=== PATIENT | female | born 1935 | race Caucasian/White ===

== ENCOUNTER 2016-09-01 05:39 | Inpatient (IN) ==
[2016-09-01] MEDS ORDERED: ceFAZolin 1,000 MG VIAL ONE (06:02)
[2016-09-01] MEDS ORDERED: SODIUM CHLORIDE 0.9% 100 ML IV ONE (06:02)
[2016-09-01] MEDS ORDERED: VANCOMYCIN 1,000 MG VIAL ONE (06:02)
[2016-09-01] MEDS: LACTATED RINGERS 1,000 ML IV SCH ×4 (06:19→17:41)
[2016-09-01] MEDS ORDERED: VANCOMYCIN INJ 1,000 MG in SODIUM CHLORIDE 0.9% 250 ML IV ONE (06:30)
[2016-09-01] MEDS ORDERED: DIAZEPAM 5 MG TABLET PO ONE (06:43)
[2016-09-01] MEDS ORDERED: FAMOTIDINE 20 MG TABLET PO ONE (06:43)
--- NOTE | 2016-09-01 06:45 | History and Physical Update ---
History and Physical Update - History and Physical H&P was reviewed, the patient examined and there: are no changes in the patients condition since last H&P was completed. - Physical Exam Mental Status: alert and oriented Heart: regular rate and rhythm Lung: clear to auscultation
[2016-09-01] MEDS ORDERED: FAMOTIDINE 20 MG TABLET ONE (06:46)
[2016-09-01] MEDS ORDERED: DIAZEPAM 5 MG TABLET ONE (06:46)
[2016-09-01] MEDS ORDERED: BACITRACIN OINT 0.9 GM PACK TOP ONE (08:03)
[2016-09-01] MEDS ORDERED: oxyCODONE IR 5 MG TABLET PO PRN (08:13)
[2016-09-01] MEDS ORDERED: diphenhydrAMINE CAP 25 MG CAPSULE PO PRN (08:13)
[2016-09-01] MEDS ORDERED: MAGNESIUM HYDROXIDE SUSP 30 ML UDCUP PO PRN (08:13)
[2016-09-01] MEDS ORDERED: ONDANSETRON 4 MG/2 ML VIAL IV PRN ×2 (08:13→08:45)
--- NOTE | 2016-09-01 08:13 | Operative Note ---
Date of procedure: 09/01/16 Procedure: DIAGNOSIS: Right knee primary osteoarthrosis PROCEDURE: Right total knee arthroplasty (cpt #90030) SURGEON: Caitlin WEB PRESS ROLL TENDER: Rowdy ANESTHESIA: General with a postoperative adductor canal block PROCEDURE and FINDINGS: After adequate was induced, the patient's knee was prepped and draped in the usual sterile fashion. The limb was exsanguinated with Esmarch. Tourniquet was inflated to 300 mmHg. A median parapatellar approach was made. Femur was cut using an intramedullary guide and a 4 in 1 cutting jig in 5 degrees of valgus. ACL and menisci were excised. Tibia was cut using intramedullary guide. Patella was cut using freehand technique. Components were trialed. Tibial fin was prepared. Components are cemented in place using Palacos cement and modern cementing techniques. Cement was removed. A 1/8 inch Hemovac drain was placed. The knee was well-balanced and full range of motion with central tracking patella. Deep layers closed with 0-0 Vicryl. Superficial layers were closed with 2-0 and 3-0 Vicryl. Skin was approximated with dai. Bacitracin and a sterile dressing was applied. Patient was transferred to recovery. A postoperative adductor canal block is anticipated. COMPONENTS: The Anne Persona system was used. 5 CR narrow femur, C natural tibia, 10 mm liner, 32 mm patella TOURNIQUET TIME: 23 minutes Surgeon / Physician: Oscar Tucker Jr. Discharge Plan - Discharge Medications No Action amLODIPine [Norvasc] 5 mg PO DAILY Hydrocodone/Acetaminophen [Hydrocodon-Acetaminophn 10-325] 1 each PO TID clonazePAM TAB [KlonoPIN] 0.5 mg PO BID Lisinopril/Hydrochlorothiazide [Lisinopril-Hctz 20-12.5 mg Tab] 20 mg PO DAILY Gabapentin Cap/Tab [Neurontin Cap/Tab] 400 mg PO TID Citalopram [CeleXA] 40 mg PO DAILY Levothyroxine Tab [Synthroid Tab] 50 mcg PO DAILY@0700 - Follow Up or Referral - Forms/Instructions
[2016-09-01] MEDS ORDERED: ROPIVACAINE 0.5% 30 ML VIAL ONE (08:26)
[2016-09-01] MEDS ORDERED: MIDAZOLAM 2 MG/2 ML VIAL ONE (08:38)
[2016-09-01] MEDS ORDERED: SEVOFLURANE 1 UNIT/15 MINUTE INH ONE (08:38)
[2016-09-01] MEDS ORDERED: fentaNYL 100 MCG/2 ML VIAL ONE (08:38)
[2016-09-01] MEDS ORDERED: ACETAMINOPHEN 1,000 MG/100 ML VIAL IV ONE ×2 (08:38→09:25)
[2016-09-01] MEDS ORDERED: TRANEXAMIC ACID 1,000 MG/10 ML VIAL IV ONE (08:40)
[2016-09-01] MEDS ORDERED: HYDROmorphone 2 MG/1 ML VIAL ONE (08:44)
[2016-09-01] MEDS: HYDROmorphone 2 MG/1 ML VIAL IV PRN ×2 (08:45→08:50)
--- NOTE | 2016-09-01 09:07 | XRay Report ---
History: Joint replacement right knee Date: 09/01/2016 Study: Right knee 2 views Comparison exam: July 03, 2013 The patient is immediately postop right knee replacement. The right knee prosthesis appears well conjugated. Surgical drains and skin dai overlie the soft tissues anteriorly. There is osteopenia. There is no radiographic evidence of complication. Impression: Postop right knee replacement PROCEDURE INTERPRETED AT [facility] DEPARTMENT OF RADIOLOGY Final Report Signed by: Dr. Chelo Read
[2016-09-01] MEDS ORDERED: ACETAMINOPHEN IV ONE (09:22)
[2016-09-01] MEDS ORDERED: KETOROLAC 30 MG/1 ML VIAL IV ONE (09:37)
[2016-09-01] MEDS: KETOROLAC 15 MG/1 ML VIAL IV SCH ×3 (10:47→20:10)
[2016-09-01] MEDS: LISINOPRIL/HCTZ 20-12.5 MG TABLET PO SCH (10:48)
[2016-09-01] MEDS: CITALOPRAM 40 MG TABLET PO SCH (11:19)
[2016-09-01] MEDS: DOCUSATE SODIUM 100 MG CAPSULE PO SCH ×2 (11:20→20:11)
[2016-09-01] MEDS: GABAPENTIN 400 MG CAPSULE PO SCH ×3 (11:20→20:12)
[2016-09-01] MEDS: clonazePAM 0.5 MG TABLET PO SCH ×2 (11:20→20:12)
[2016-09-01 12:18] LABS: Calcium 8.9 MG/DL (8.5-10.1); Osmolality,Calculated 280.5 MOS/KG (273-304); Potassium 4.5 MMOL/L (3.5-5.1)
[2016-09-01] MEDS: ACETAMINOPHEN 500 MG TABLET PO SCH ×3 (13:10→23:20)
--- NOTE | 2016-09-01 13:37 | Pulmonology Progress Note ---
Pulmonary - PN: Subj Interval history: The patient is a 80-year-old white lady that is followed by Dr. Young for hypertension and arthritis. She came in today and had a right total knee replacement. She did well today with surgery and is fairly stable postop. She is having some discomfort but has had some pain medicines. She did not have any trouble with anesthesia and she says her breathing is doing okay. She says she does feel better after pain medicines. She is a former smoker but has had no trouble with her breathing. Exam (Progress Note) - Constitutional Vitals: Period Temp Pulse Resp BP Sys/Palma Pulse Ox Last 24 Hr 97.7 F-98.6 F 78-88 12-20 93-153/62-90 96-100 General appearance: normal weight, no acute distress - Head Head exam: Present: normal inspection, normocephalic - Eye Eye exam: Present: EOMI. Absent: scleral icterus Pupils: Present: SUZI - ENT ENT exam: Present: normal exam - Neck Neck exam: Present: normal inspection. Absent: lymphadenopathy, thyromegaly - Respiratory Respiratory exam: Present: clear to auscultation bilaterally. Absent: wheezes - Cardiovascular Cardiovascular exam: Present: regular rate and rhythm. Absent: gallop, systolic murmur - GI/Abdominal GI/Abdominal exam: Present: normal bowel sounds, soft. Absent: organomegaly, tenderness - Extremities Exam Extremities exam: Present: other (The right leg is splinted). Absent: calf tenderness, edema - Neurological Exam Neurological exam: Present: alert, oriented X3, CN II-XII intact - Psychiatric Psychiatric exam: Present: normal affect, normal mood - Skin Skin exam: Present: warm, dry Results - Labs CBC & BMP: 09/01/16 11:43 Assessment and Plan (1) Osteoarthritis Status: Acute Assessment and plan: Patient apparently had significant arthritis and is limited by her knee pain. She is coming in today for surgery. Current Visit: Yes (2) Status post total right knee replacement Status: Acute Assessment and plan: The patient did well with anesthesia and is not having any trouble postop. She did well with surgery. Current Visit: Yes (3) Hypertension Status: Acute Assessment and plan: Her blood pressure has been stable and her heart rate is doing okay. She is not having any medical problems at this point. Current Visit: Yes
--- NOTE | 2016-09-01 14:39 | Anesthesia Post-Op ---
Anesthesia Post OP - Post Ansesthetic Evaluation Patient seen in post op: Yes Resp: within normal limits CV: within normal limits Mental: within normal limits Temp: within normal limits [id number]: within normal limits Nausea and Vomiting: within normal limits Pain: within normal limits
--- NOTE | 2016-09-01 15:38 | Orthopedic Progress Note ---
Orthopedics - Subjective Interval history: Comfortable. Right foot and ankle is neurovascularly intact. Dressing clean, dry and intact. Plan: Continue with postoperative protocol. Exam - Constitutional Vitals: Period Temp Pulse Resp BP Sys/Palma Pulse Ox Last 24 Hr 97.7 F-98.6 F 73-92 12-20 89-153/55-90 95-100 Results - Labs CBC & BMP: 09/01/16 11:43
[2016-09-02] MEDS: KETOROLAC 15 MG/1 ML VIAL IV SCH (01:59)
[2016-09-02] MEDS: LACTATED RINGERS 1,000 ML IV SCH (03:45)
[2016-09-02 03:52] LABS: Basophils % 0.4 % (0.0-0.8); Eosinophils # 0.3 10*3/uL (0.0-0.87); Eosinophils % 3.5 % (0.00-10.9); Hematocrit 30.8 VOL% (35.7-47.0); Hemoglobin 9.9 GM/DL (12.0-16.0); Immature Granulocytes % 0.5 %; Immature Granulocytes Absolute 0.04 #; Lymphocytes # 1.2 10*3/uL (1.4-4.0); Mean Corpuscular HGB Conc 32.1 GM/DL (32-36); Mean Corpuscular Hemoglobin 31 PG (27-34); Mean Corpuscular Volume 95.4 FL (87-102); Mean Platelet Volume 11.3 FL (9.6-12.0); Monocytes # 0.5 10*3/uL (0.11-0.8); Monocytes % 5.7 % (1.7-12.7); Neutrophils # 6.3 10*3/uL (1.4-7.4); Neutrophils % 75.9 % (38.7-73.9); Platelet Count 148 T/CUMM (130-400); Red Blood Count 3.23 MC/CUMM (3.8-5.5); Red Cell Distribution Width 12.9 % (9.3-17.3); White Blood Count 8.2 T/CUMM (4-12)
[2016-09-02 04:12] LABS: Calcium 8.6 MG/DL (8.5-10.1); Potassium 4.3 MMOL/L (3.5-5.1)
[2016-09-02] MEDS: ACETAMINOPHEN 500 MG TABLET PO SCH (05:19)
[2016-09-02] MEDS: LEVOTHYROXINE 50 MCG TABLET PO SCH (06:08)
[2016-09-02] MEDS: FONDAPARINUX 2.5 MG/0.5 ML SYRINGE SUBCUT SCH (06:08)
--- NOTE | 2016-09-02 07:27 | Orthopedic Progress Note ---
Orthopedics - Subjective Interval history: Ms. Moreira is comfortable this morning. Right lower extremity is neurovascularly unchanged. Dressing clean, dry and intact. Plan: Continue per protocol. Plan swing bed placement. Exam - Constitutional Vitals: Period Temp Pulse Resp BP Sys/Palma Pulse Ox Last 24 Hr 97.7 F-98.6 F 71-92 12-20 86-153/48-90 94-100 Results - Labs CBC & BMP: 09/02/16 02:59 09/02/16 02:59
[2016-09-02] MEDS ORDERED: ACETAMINOPHEN 325 MG TABLET PO PRN (08:14)
[2016-09-02] MEDS: clonazePAM 0.5 MG TABLET PO SCH ×2 (08:36→20:19)
[2016-09-02] MEDS: CITALOPRAM 40 MG TABLET PO SCH (08:37)
[2016-09-02] MEDS: DOCUSATE SODIUM 100 MG CAPSULE PO SCH ×2 (08:37→20:18)
[2016-09-02] MEDS: LISINOPRIL/HCTZ 20-12.5 MG TABLET PO SCH (08:37)
[2016-09-02] MEDS: GABAPENTIN 400 MG CAPSULE PO SCH ×3 (08:37→20:18)
[2016-09-02] MEDS: amLODIPine 5 MG TABLET PO SCH (08:37)
[2016-09-02] MEDS: MORPHINE 2 MG/1 ML SYRINGE IV PRN ×5 (10:02→21:35)
--- NOTE | 2016-09-02 10:52 | Pulmonology Progress Note ---
Pulmonary - PN: Subj Interval history: The patient is a 80-year-old white lady that is followed by Dr. Young for hypertension and arthritis. She came in and had a right total knee replacement. She did well today with surgery but she does not remember much about yesterday. She did say she slept a lot. She feels better today but is sore. She is going to start physical therapy soon. She is not having any trouble breathing or other problems. Exam (Progress Note) - Constitutional Vitals: Period Temp Pulse Resp BP Sys/Palma Pulse Ox Last 24 Hr 97.7 F-99.9 F 71-92 15-20 86-129/48-89 94-100 Exam: General appearance: normal weight, no acute distress, she is alert and comfortable today. - Head Head exam: Present: normal inspection, normocephalic - Eye Eye exam: Present: EOMI. Absent: scleral icterus Pupils: Present: SUZI - ENT ENT exam: Present: normal exam - Neck Neck exam: Present: normal inspection. Absent: lymphadenopathy, thyromegaly - Respiratory Respiratory exam: Present: clear to auscultation bilaterally. Absent: wheezes - Cardiovascular Cardiovascular exam: Present: regular rate and rhythm. Absent: gallop, systolic murmur - GI/Abdominal GI/Abdominal exam: Present: normal bowel sounds, soft. Absent: organomegaly, tenderness - Extremities Exam Extremities exam: Present: other (The right leg is splinted. She is not having a lot of swelling.). Absent: calf tenderness, edema - Neurological Exam Neurological exam: Present: alert, oriented X3, CN II-XII intact - Psychiatric Psychiatric exam: Present: normal affect, normal mood - Skin Skin exam: Present: warm, dry Results - Labs CBC & BMP: 09/02/16 02:59 09/02/16 02:59 Assessment and Plan (1) Osteoarthritis Status: Acute Assessment and plan: Patient apparently had significant arthritis and is limited by her knee pain. Current Visit: Yes (2) Status post total right knee replacement Status: Acute Assessment and plan: The patient did well with anesthesia and she does not remember much about yesterday. She did well with surgery and her knee is feeling better. She will start physical therapy today. Current Visit: Yes (3) Hypertension Status: Acute Assessment and plan: Her blood pressure has been stable and her heart rate is doing okay. She is not having any medical problems at this point. She feels like her breathing is doing well and she will start moving around today. Current Visit: Yes
[2016-09-02] MEDS: CELECOXIB 200 MG CAPSULE PO SCH (14:32)
[2016-09-02] MEDS: oxyCODONE IR 5 MG TABLET PO PRN (20:20)
[2016-09-03] MEDS: oxyCODONE IR 5 MG TABLET PO PRN ×2 (00:14→04:07)
[2016-09-03 02:23] LABS: Basophils % 0.2 % (0.0-0.8); Eosinophils # 0.3 10*3/uL (0.0-0.87); Eosinophils % 3.7 % (0.00-10.9); Hematocrit 30.8 VOL% (35.7-47.0); Hemoglobin 9.6 GM/DL (12.0-16.0); Immature Granulocytes % 0.6 %; Immature Granulocytes Absolute 0.06 #; Lymphocytes # 1.4 10*3/uL (1.4-4.0); Lymphocytes % 15.2 % (21.3-54.2); Mean Corpuscular HGB Conc 31.2 GM/DL (32-36); Mean Corpuscular Hemoglobin 30 PG (27-34); Monocytes # 0.7 10*3/uL (0.11-0.8); Monocytes % 7.2 % (1.7-12.7); Neutrophils # 6.8 10*3/uL (1.4-7.4); Neutrophils % 73.1 % (38.7-73.9); Platelet Count 167 T/CUMM (130-400); Red Blood Count 3.21 MC/CUMM (3.8-5.5); Red Cell Distribution Width 13.1 % (9.3-17.3); White Blood Count 9.3 T/CUMM (4-12)
[2016-09-03] MEDS: FONDAPARINUX 2.5 MG/0.5 ML SYRINGE SUBCUT SCH (05:54)
[2016-09-03] MEDS: LEVOTHYROXINE 50 MCG TABLET PO SCH (06:20)
--- NOTE | 2016-09-03 07:40 | Orthopedic Progress Note ---
Orthopedics - Subjective Interval history: Ms. Moreira has had more pain since the block wore off. Dressing clean, dry and intact. Right lower extremities neurovascularly unchanged. Plan: Will increase her Sabine to 10's every 4 hours. Plan swing bed placement. Mobilize with physical therapy. Exam - Constitutional Vitals: Period Temp Pulse Resp BP Sys/Palma Pulse Ox Last 24 Hr 97.9 F-100.6 F 75-99 15-20 109-138/54-67 91-100 Results - Labs CBC & BMP: 09/03/16 01:57 09/02/16 02:59
[2016-09-03] MEDS: GABAPENTIN 400 MG CAPSULE PO SCH ×3 (08:13→21:01)
[2016-09-03] MEDS: CITALOPRAM 40 MG TABLET PO SCH (08:13)
[2016-09-03] MEDS: amLODIPine 5 MG TABLET PO SCH (08:13)
[2016-09-03] MEDS: CELECOXIB 200 MG CAPSULE PO SCH (08:13)
[2016-09-03] MEDS: MORPHINE 2 MG/1 ML SYRINGE IV PRN ×4 (08:14→21:02)
[2016-09-03] MEDS: LISINOPRIL/HCTZ 20-12.5 MG TABLET PO SCH (08:14)
[2016-09-03] MEDS: clonazePAM 0.5 MG TABLET PO SCH ×2 (08:14→21:01)
[2016-09-03] MEDS: DOCUSATE SODIUM 100 MG CAPSULE PO SCH ×2 (08:14→21:01)
--- NOTE | 2016-09-03 09:45 | Pulmonology Progress Note ---
Pulmonary - PN: Subj Interval history: The patient is a 80-year-old white lady that is followed by Dr. Young for hypertension and arthritis. She came in and had a right total knee replacement. She did well with surgery but she does not remember much about the first day. Yesterday she did move around a little bit. She is complaining of more pain and had a bad night. She says she did not sleep very well. Today she looks okay and says her breathing is doing well. She is going to try to continue with physical therapy. Exam (Progress Note) - Constitutional Vitals: Period Temp Pulse Resp BP Sys/Palma Pulse Ox Last 24 Hr 97.9 F-100.6 F 85-99 15-20 109-138/54-67 91-97 Exam: General appearance: normal weight, no acute distress, she is alert and comfortable today. - Head Head exam: Present: normal inspection, normocephalic - Eye Eye exam: Present: EOMI. Absent: scleral icterus Pupils: Present: SUZI - ENT ENT exam: Present: normal exam - Neck Neck exam: Present: normal inspection. Absent: lymphadenopathy, thyromegaly - Respiratory Respiratory exam: Present: clear to auscultation bilaterally. Absent: wheezes - Cardiovascular Cardiovascular exam: Present: regular rate and rhythm. Absent: gallop, systolic murmur - GI/Abdominal GI/Abdominal exam: Present: normal bowel sounds, soft. Absent: organomegaly, tenderness - Extremities Exam Extremities exam: Right leg is still splinted but the swelling is better. - Neurological Exam Neurological exam: Present: alert, oriented X3, CN II-XII intact, she has no focal deficits. - Psychiatric Psychiatric exam: Present: normal affect, normal mood - Skin Skin exam: Present: warm, dry Results - Labs CBC & BMP: 09/03/16 01:57 09/02/16 02:59 Assessment and Plan (1) Osteoarthritis Status: Acute Assessment and plan: Patient apparently had significant arthritis and is limited by her knee pain. Current Visit: Yes (2) Status post total right knee replacement Status: Acute Assessment and plan: The patient did well with anesthesia and she does not remember much about the first postop day. She is having a good bit of pain and is taking some pain medicines. She will continue with physical therapy today. Current Visit: Yes (3) Hypertension Status: Acute Assessment and plan: Her blood pressure has been stable and her heart rate is doing okay. She is not having any medical problems at this point. She feels like her breathing is doing well and she will start moving around today. Current Visit: Yes
[2016-09-04] MEDS: MORPHINE 2 MG/1 ML SYRINGE IV PRN ×3 (00:04→06:01)
[2016-09-04 05:51] LABS: Basophils % 0.1 % (0.0-0.8); Eosinophils # 0.4 10*3/uL (0.0-0.87); Eosinophils % 4.6 % (0.00-10.9); Hematocrit 28.8 VOL% (35.7-47.0); Hemoglobin 9.1 GM/DL (12.0-16.0); Immature Granulocytes % 0.5 %; Immature Granulocytes Absolute 0.05 #; Lymphocytes # 1.5 10*3/uL (1.4-4.0); Lymphocytes % 16.3 % (21.3-54.2); Mean Corpuscular HGB Conc 31.6 GM/DL (32-36); Mean Corpuscular Hemoglobin 31 PG (27-34); Mean Corpuscular Volume 98.3 FL (87-102); Mean Platelet Volume 10.7 FL (9.6-12.0); Monocytes # 0.7 10*3/uL (0.11-0.8); Monocytes % 7.3 % (1.7-12.7); Neutrophils # 6.5 10*3/uL (1.4-7.4); Neutrophils % 71.2 % (38.7-73.9); Platelet Count 167 T/CUMM (130-400); Red Blood Count 2.93 MC/CUMM (3.8-5.5); Red Cell Distribution Width 13.2 % (9.3-17.3); White Blood Count 9.1 T/CUMM (4-12)
[2016-09-04] MEDS: FONDAPARINUX 2.5 MG/0.5 ML SYRINGE SUBCUT SCH (06:00)
[2016-09-04] MEDS: LEVOTHYROXINE 50 MCG TABLET PO SCH (06:00)
[2016-09-04] MEDS: CITALOPRAM 40 MG TABLET PO SCH (08:34)
[2016-09-04] MEDS: GABAPENTIN 400 MG CAPSULE PO SCH ×3 (08:34→21:08)
[2016-09-04] MEDS: CELECOXIB 200 MG CAPSULE PO SCH (08:35)
[2016-09-04] MEDS: DOCUSATE SODIUM 100 MG CAPSULE PO SCH ×2 (08:35→21:08)
[2016-09-04] MEDS: clonazePAM 0.5 MG TABLET PO SCH ×2 (08:35→21:08)
[2016-09-04] MEDS: amLODIPine 5 MG TABLET PO SCH (08:36)
[2016-09-04] MEDS: LISINOPRIL/HCTZ 20-12.5 MG TABLET PO SCH (08:36)
--- NOTE | 2016-09-04 09:09 | Discharge Summary ---
Hospital Course - Hospital Course Hospital Course: Ms. Moreira was admitted after undergoing an uncomplicated right total knee arthroplasty. She received perioperative DVT and antimicrobial prophylaxis. She received physical therapy. Dr. Santoro was consulted to manage her medical problems perioperatively. Dressing is clean, dry and intact. Right lower extremities neurovascularly unchanged. Specialty Discharge - Follow Up or Referrals Follow up with: Oscar Tucker Jr., MD [Physician] - 10/03/16 9:20 am (4 weeks) Joshua Santoro MD [Physician] - (call office with room number on arrival) Discharge Plan - Discharge Data Disposition: Disch/Xfer to Snf Condition at Discharge: Stable Discharge Diet: advance to your usual diet Hygiene: may shower Weight Bearing at Discharge: weight bear as tolerated Driving: not until seen by doctor - Discharge Medications New Fondaparinux [Arixtra] 2.5 mg SUBCUT Q24H #10 syringe HYDROcodone/ACETAMIN 10-325 [[place] 10-325] 1 tablet PO Q4H PRN tablet PRN Reason: Pain Moderate (4-7) HYDROcodone/ACETAMIN 10-325 [[place] 10-325] 2 tablet PO Q4H PRN tablet PRN Reason: Pain Moderate (4-7) Celecoxib [Celebrex] 200 mg PO DAILY capsule Continue amLODIPine [Norvasc] 5 mg PO DAILY clonazePAM TAB [KlonoPIN] 0.5 mg PO BID Lisinopril/Hydrochlorothiazide [Lisinopril-Hctz 20-12.5 mg Tab] 1 tablet PO DAILY Gabapentin Cap/Tab [Neurontin Cap/Tab] 400 mg PO TID Citalopram [CeleXA] 40 mg PO DAILY Levothyroxine Tab [Synthroid Tab] 50 mcg PO DAILY@0700 Discontinued Hydrocodone/Acetaminophen [Hydrocodon-Acetaminophn 10-325] 1 each PO TID - Follow Up or Referral Follow Up: Oscar Tucker Jr., MD [Physician] - 10/03/16 9:20 am (4 weeks) Joshua Santoro MD [Physician] - (call office with room number on arrival) - Forms/Instructions Instructions: Total Knee Replacement (DC) Additional Discharge Instructions: Daily dry dressing changes. Weightbearing as tolerated. Arrange walker and bedside commode for home use. Wear KADEN hose for 1 month. Discontinue dai and Steri-Strip wound on September 13, 2016. Follow -up appointment in 4 weeks. Prescription for [place] 10 with 30 tablets was written. Exam - Constitutional Vitals: Period Temp Pulse Resp BP Sys/Palma Pulse Ox Last 24 Hr 97.2 F-98.5 F 83-94 16-20 96-120/48-68 92-97 Discharge Results Labs on day of discharge: Labs from last 24 hours 09/04/16 05:31 WBC 9.1 RBC 2.93 L Hgb 9.1 L Hct 28.8 L MCV 98.3 MCH 31 MCHC 31.6 L RDW 13.2 Plt Count 167 MPV 10.7 Neut % (Auto) 71.2 Lymph % (Auto) 16.3 L [place] % (Auto) 7.3 Eos % (Auto) 4.6 Baso % (Auto) 0.1 Neut # (Auto) 6.5 Lymph # (Auto) 1.5 [place] # (Auto) 0.7 Eos # (Auto) 0.4 Baso # (Auto) 0.0 Immature Gran % 0.5 Nucleated RBC % 0.0 Immature Gran # 0.05 Nucleated RBCs # 0.00 DS: Provider Date of admission: 09/01/16 05:39 Primary care physician: Taiwo Young MD Attending physician on admission: Oscar Tucker Jr., Consults: 09/01/16 08:14 Consult to Case Mgmt/Social Srvs [CONS] Routine Reason for Case Mgmt/Social Srvs: Rehab Home Health Equipment Consult Comment: Bedside Commode, CPM, Walker Consult to Occupational Therapy [CONS] Routine Reason for Occupational Therapy: Evaluate and Treat Consult Comment: ADL's Consult to Physical Therapy [CONS] Routine Reason for Physical Therapy: Evaluate and Treat Gait Training Start Therapy: Today 09/01/16 10:13 Consult to Physician [CONS] Routine Comment: Consulting Provider: Joshua Santoro Consulting Provider Notified: Yes When should Consulting Provider be notified: Now Person Notified: kimo marin Date Notified: 09/01/16 Time Notified: 10:14 09/01/16 10:34 Consult to Pastoral Services [CONS] Routine Comment: Pastoral Screen: Request Private Security Guard Visit Pastoral Screen Source of Request: Family Discharging clinician: Oscar Tucker Jr., Expected date of discharge: 09/05/16
--- NOTE | 2016-09-04 12:18 | Pulmonology Progress Note ---
Pulmonary - PN: Subj Interval history: The patient is a 80-year-old white lady that is followed by Dr. Young for hypertension and arthritis. She came in and had a right total knee replacement. She did well with surgery but she does not remember much about the first day. She is doing a little better each day but still not sleeping that well. She still requires pain medicines. She says she is having a bowel movement now. Her breathing is been doing okay. She is sitting up and do a little more physical therapy. She will likely need a swing bed. Exam (Progress Note) - Constitutional Vitals: Period Temp Pulse Resp BP Sys/Palma Pulse Ox Last 24 Hr 97.2 F-98.8 F 84-94 16-20 95-108/48-79 92-97 Exam: General appearance: normal weight, no acute distress, she is alert and comfortable today. She is sitting up and in no distress. - Head Head exam: Present: normal inspection, normocephalic - Eye Eye exam: Present: EOMI. Absent: scleral icterus Pupils: Present: SUZI - ENT ENT exam: Present: normal exam - Neck Neck exam: Present: normal inspection. Absent: lymphadenopathy, thyromegaly - Respiratory Respiratory exam: Present: Her lungs have good breath sounds bilaterally and sound relatively clear. - Cardiovascular Cardiovascular exam: Present: regular rate and rhythm. Absent: gallop, systolic murmur - GI/Abdominal GI/Abdominal exam: Present: normal bowel sounds, soft. Absent: organomegaly, tenderness - Extremities Exam Extremities exam: Right leg is still splinted but the swelling is better. She is moving her leg a little better. - Neurological Exam Neurological exam: Present: alert, oriented X3, CN II-XII intact, she has no focal deficits. - Psychiatric Psychiatric exam: Present: normal affect, normal mood - Skin Skin exam: Present: warm, dry Results - Labs CBC & BMP: 09/04/16 05:31 09/02/16 02:59 Assessment and Plan (1) Osteoarthritis Status: Acute Assessment and plan: Patient apparently had significant arthritis and is limited by her knee pain. Current Visit: Yes (2) Status post total right knee replacement Status: Acute Assessment and plan: The patient continues to do fairly well postop but has had a lot of pain. She is doing some physical therapy. She will likely go to a swing bed. Current Visit: Yes (3) Hypertension Status: Acute Assessment and plan: Her blood pressure has been stable and her heart rate is doing okay. She is not having any medical problems at this point. She feels like her breathing is doing well and she will start moving around today. Current Visit: Yes Specialty Discharge - Follow Up or Referrals Follow up with: Oscar Tucker Jr., MD [Physician] - 10/03/16 9:20 am (4 weeks)
--- NOTE | 2016-09-04 12:19 | Pathology Report from [facility] ---
[facility] ACCESSION # : [id number] PATIENT NAME : Kb Moreira ORDERING DR : YULIANA MOSCOSO MD CLINICAL HX: RT knee osteoarthritis POST-OP DX: Same SPECIMEN INFO: RT knee bone & tissue GROSS DESCRIPTION: Received in formalin labeled KB MOREIRA is an aggregate of bone, soft tissue and cartilage measuring 11.5 x 5.0 cm. The articular surfaces are focally degenerative with areas of subchondral eburnation seen. Crutch Maker tissue is submitted in one cassette. DIAGNOSIS FOR KB MOREIRA: RIGHT KNEE BONE & TISSUE, REPLACEMENT: Osteoarthritis. COLLECTED DATE: 09/01/2016 [facility] REPORT DATE: 09/04/2016 ELECTRONICALLY SIGNED BY: Kellee Abebe M.D. 09/04/2016 - 10:48:27 [facility]ALTaly[facility]
[2016-09-04] MEDS: oxyCODONE IR 5 MG TABLET PO PRN (17:08)
[2016-09-05] MEDS: oxyCODONE IR 5 MG TABLET PO PRN ×2 (03:45→07:08)
[2016-09-05] MEDS: FONDAPARINUX 2.5 MG/0.5 ML SYRINGE SUBCUT SCH (07:05)
[2016-09-05] MEDS: LEVOTHYROXINE 50 MCG TABLET PO SCH (07:05)
[2016-09-05 07:11] LABS: Calcium 9.3 MG/DL (8.5-10.1); Osmolality,Calculated 280.5 MOS/KG (273-304); Potassium 4.8 MMOL/L (3.5-5.1)
--- NOTE | 2016-09-05 07:20 | Orthopedic Progress Note ---
Orthopedics - Subjective Interval history: Still waiting on swing bed placement. Ms. Moreira is feeling better and is progressing with physical therapy. Dressing clean, dry and intact. Right lower extremities neurovascular change. Plan: Continue with physical therapy. Await swing bed placement. Exam - Constitutional Vitals: Period Temp Pulse Resp BP Sys/Palma Pulse Ox Last 24 Hr 97.0 F-98.8 F 82-104 16-20 93-107/53-79 90-96 Results - Labs CBC & BMP: 09/04/16 05:31 09/05/16 06:23 Specialty Discharge - Follow Up or Referrals Follow up with: Oscar Tucker Jr., MD [Physician] - 10/03/16 9:20 am (4 weeks)
[2016-09-05] MEDS: DOCUSATE SODIUM 100 MG CAPSULE PO SCH (09:59)
[2016-09-05] MEDS: CELECOXIB 200 MG CAPSULE PO SCH (09:59)
[2016-09-05] MEDS: CITALOPRAM 40 MG TABLET PO SCH (09:59)
[2016-09-05] MEDS: LISINOPRIL/HCTZ 20-12.5 MG TABLET PO SCH (10:00)
[2016-09-05] MEDS: clonazePAM 0.5 MG TABLET PO SCH (10:00)
[2016-09-05] MEDS: GABAPENTIN 400 MG CAPSULE PO SCH (10:00)
[2016-09-05] MEDS: amLODIPine 5 MG TABLET PO SCH (10:00)
--- NOTE | 2016-09-05 10:09 | Pulmonology Progress Note ---
Pulmonary - PN: Subj Interval history: The patient is a 80-year-old white lady that is followed by Dr. Young for hypertension and arthritis. She came in and had a right total knee replacement. She has been slow moving around but is doing better now. She says her leg is feeling better and she is walking some. The right knee pain is much improved. She is not having any shortness of breath or other problems. She will probably go to a swing bed. Exam (Progress Note) - Constitutional Vitals: Period Temp Pulse Resp BP Sys/Palma Pulse Ox Last 24 Hr 97.0 F-99.3 F 82-104 16-20 93-143/53-79 90-100 Exam: General appearance: normal weight, no acute distress, she is alert and comfortable today. She is sitting up and in no distress. She looks like she feels better today. - Head Head exam: Present: normal inspection, normocephalic - Eye Eye exam: Present: EOMI. Absent: scleral icterus Pupils: Present: SUZI - ENT ENT exam: Present: normal exam - Neck Neck exam: Present: normal inspection. Absent: lymphadenopathy, thyromegaly - Respiratory Respiratory exam: Present: Her lungs have good breath sounds bilaterally and sound relatively clear. - Cardiovascular Cardiovascular exam: Present: regular rate and rhythm. Absent: gallop, systolic murmur - GI/Abdominal GI/Abdominal exam: Present: normal bowel sounds, soft. Absent: organomegaly, tenderness - Extremities Exam Extremities exam: Right leg is still splinted but the swelling is better. She is moving her leg a little better. Her wound looks good. - Neurological Exam Neurological exam: Present: alert, oriented X3, CN II-XII intact, she has no focal deficits. - Psychiatric Psychiatric exam: Present: normal affect, normal mood - Skin Skin exam: Present: warm, dry Results - Labs CBC & BMP: 09/04/16 05:31 09/05/16 06:23 Assessment and Plan (1) Osteoarthritis Status: Acute Assessment and plan: Patient apparently had significant arthritis and is limited by her knee pain. She is doing fairly well after surgery. Current Visit: Yes (2) Status post total right knee replacement Status: Acute Assessment and plan: The patient continues to do fairly well postop and she is moving around better and ambulating a little. Her knee pain is better. Overall she is improving. She will go to a swing bed today. Current Visit: Yes (3) Hypertension Status: Acute Assessment and plan: Her blood pressure has been stable and her heart rate is doing okay. She is not having any medical problems at this point. She feels like her breathing is doing well and she is doing more activity now. Overall she is quite stable. Current Visit: Yes Specialty Discharge - Follow Up or Referrals Follow up with: Oscar Tucker Jr., MD [Physician] - 10/03/16 9:20 am (4 weeks) Joshua Santoro MD [Physician] - (call office with room number on arrival)
[2016-09-05 12:32] VITALS: BP 108/43
== END 2016-09-05 12:45 | disposition swing bed (61) | DRG 470 ==
LOC: N.SDSINP 05:39 → N.3E 10:02
PROVIDERS: ADMIT Orthopaedic Surgery; ATTEND Orthopaedic Surgery

== ENCOUNTER 2017-08-08 09:31 | Inpatient (IN) ==
[2017-08-08] MEDS ORDERED: ONDANSETRON 4 MG/2 ML VIAL IV STA ×2 (09:53→11:42)
[2017-08-08] MEDS ORDERED: SODIUM CHLORIDE 0.9% 1,000 ML IV STA (09:53)
[2017-08-08] MEDS ORDERED: PANTOPRAZOLE 40 MG VIAL IV STA (09:56)
[2017-08-08] MEDS ORDERED: METOCLOPRAMIDE 10 MG/2 ML VIAL IV STA ×2 (09:56→11:42)
[2017-08-08 10:51] LABS: Basophils # 0.1 10*3/uL (0.0-0.2); Basophils % 0.3 % (0.0-0.8); Eosinophils % 0.1 % (0.00-10.9); Hematocrit 39.2 VOL% (35.7-47.0); Hemoglobin 12.6 GM/DL (12.0-16.0); Immature Granulocytes % 1.9 %; Mean Corpuscular HGB Conc 32.1 GM/DL (32-36); Mean Corpuscular Hemoglobin 29 PG (27-34); Mean Corpuscular Volume 90.1 FL (87-102); Mean Platelet Volume 9.8 FL (9.6-12.0); Monocytes # 1.2 10*3/uL (0.11-0.8); Monocytes % 4.6 % (1.7-12.7); Neutrophils # 23.4 10*3/uL (1.4-7.4); Neutrophils % 89.1 % (38.7-73.9); Platelet Count 439 T/CUMM (130-400); Red Blood Count 4.35 MC/CUMM (3.8-5.5); Red Cell Distribution Width 14.1 % (9.3-17.3); White Blood Count 26.3 T/CUMM (4-12)
[2017-08-08] MEDS ORDERED: metroNIDAZOLE INJ 500 MG in PREMIX 1 EACH IV STA (11:07)
[2017-08-08] MEDS ORDERED: cefTRIAXone 2,000 MG in SODIUM CHLORIDE 0.9% 100 ML IV ONE (11:07)
[2017-08-08 11:18] LABS: Giant Platelets Few; Hypochromasia 1+; Lymphocytes 3 % (20-55); Platelet Estimate Adequate; Segmented Neutrophils 92 % (50-85); Total Cells Counted 100
[2017-08-08 11:19] LABS: Alanine Aminotransferase 17 U/L (13-56); Alkaline Phosphatase 197 U/L (45-117); Amylase 54 U/L (25-115); Aspartate Amino Transferase 10 U/L (0-37); Blood Urea Nitrogen 14 MG/DL (7-18); Calcium 9.2 MG/DL (8.5-10.1); Glucose 117 MG/DL (74-106); Osmolality,Calculated 271.1 MOS/KG (273-304); Potassium 4.1 MMOL/L (3.5-5.1); Sodium 135 MMOL/L (136-145); Total Protein 7.8 G/DL (6.4-8.3); Troponin I Only < 0.015 NG/ML (0.00-0.045)
[2017-08-08] MEDS ORDERED: cefTRIAXone 1,000 MG VIAL ONE (11:33)
[2017-08-08 12:02] LABS: Lactic Acid 0.7 MMOL/L (0.4-2.0)
[2017-08-08 14:49] LABS: Apearance,Urine CLEAR (Clear); Bilirubin,Urine Negative (Negative); Blood, Urine Negative (Negative); Glucose,Urine (UA) Negative (Negative); Hyaline Casts,Urine 3 /LPF (0-3); Ketones,Urine 20 mg/dL (Negative); Nitrite,Urine Negative (Negative); Protein,Urine Negative; RBC,Urine 1 /HPF (0-4); Squamous Epithelial Cell,Urine Occasional /HPF (0-10); Urine Color Yellow (Yellow); Urine Specific Gravity 1.009 (1.001-1.035); Urine Urobilinogen < 2.0 EU/DL (0.2-1.0); WBC,Urine 2 /HPF (0-6)
[2017-08-08] MEDS ORDERED: MORPHINE 4 MG/1 ML VIAL IV PRN (17:38)
[2017-08-08] MEDS ORDERED: ONDANSETRON 4 MG/2 ML VIAL IV PRN (17:38)
[2017-08-08] MEDS ORDERED: ACETAMINOPHEN 325 MG TABLET PO PRN (17:38)
[2017-08-08] MEDS: LACTATED RINGERS 1,000 ML IV SCH (18:09)
[2017-08-08] MEDS: GABAPENTIN 400 MG CAPSULE PO SCH ×2 (18:10→21:10)
[2017-08-08] MEDS: PIPERACILLIN/TAZOBACTAM 3,375 MG in SODIUM CHLORIDE 0.9% 100 ML IV SCH (18:12)
[2017-08-08] MEDS: clonazePAM 0.5 MG TABLET PO SCH (21:10)
[2017-08-08] MEDS: CITALOPRAM 40 MG TABLET PO SCH (21:10)
[2017-08-09] MEDS: PIPERACILLIN/TAZOBACTAM 3,375 MG in SODIUM CHLORIDE 0.9% 100 ML IV SCH ×3 (01:01→18:32)
[2017-08-09] MEDS: LACTATED RINGERS 1,000 ML IV SCH ×2 (01:02→10:45)
[2017-08-09] MEDS: LEVOTHYROXINE 50 MCG TABLET PO SCH (06:11)
[2017-08-09 06:54] LABS: Basophils % 0.2 % (0.0-0.8); Eosinophils # 0.6 10*3/uL (0.0-0.87); Eosinophils % 3.2 % (0.00-10.9); Hematocrit 30.7 VOL% (35.7-47.0); Immature Granulocytes % 1.1 %; Immature Granulocytes Absolute 0.19 #; Lymphocytes % 5.8 % (21.3-54.2); Mean Corpuscular HGB Conc 32.2 GM/DL (32-36); Mean Corpuscular Hemoglobin 29 PG (27-34); Mean Corpuscular Volume 89.5 FL (87-102); Mean Platelet Volume 9.9 FL (9.6-12.0); Monocytes # 0.9 10*3/uL (0.11-0.8); Monocytes % 5.1 % (1.7-12.7); Neutrophils # 14.6 10*3/uL (1.4-7.4); Neutrophils % 84.6 % (38.7-73.9); Platelet Count 368 T/CUMM (130-400); Red Cell Distribution Width 14.2 % (9.3-17.3)
[2017-08-09 07:11] LABS: Hemoglobin 9.9 GM/DL (12.0-16.0); Red Blood Count 3.43 MC/CUMM (3.8-5.5); White Blood Count 17.3 T/CUMM (4-12)
[2017-08-09 07:30] LABS: Alanine Aminotransferase < 9 U/L (13-56); Alkaline Phosphatase 144 U/L (45-117); Aspartate Amino Transferase 5 U/L (0-37); Blood Urea Nitrogen 10 MG/DL (7-18); Calcium 8.8 MG/DL (8.5-10.1); Glucose 87 MG/DL (74-106); Osmolality,Calculated 280.1 MOS/KG (273-304); Potassium 3.8 MMOL/L (3.5-5.1); Sodium 142 MMOL/L (136-145); Total Protein 5.8 G/DL (6.4-8.3)
[2017-08-09] MEDS: GABAPENTIN 400 MG CAPSULE PO SCH ×3 (09:51→21:55)
[2017-08-09] MEDS: PANTOPRAZOLE 40 MG TABLET PO SCH (09:51)
[2017-08-09] MEDS: clonazePAM 0.5 MG TABLET PO SCH ×2 (09:51→21:55)
[2017-08-09] MEDS: ENOXAPARIN 40 MG/0.4 ML SYRINGE SUBCUT SCH (09:51)
[2017-08-09] MEDS: CITALOPRAM 40 MG TABLET PO SCH (21:55)
[2017-08-10] MEDS: PIPERACILLIN/TAZOBACTAM 3,375 MG in SODIUM CHLORIDE 0.9% 100 ML IV SCH ×2 (02:57→10:05)
[2017-08-10] MEDS: LEVOTHYROXINE 50 MCG TABLET PO SCH (06:03)
[2017-08-10 06:46] LABS: Basophils # 0.1 10*3/uL (0.0-0.2); Basophils % 0.5 % (0.0-0.8); Eosinophils # 0.8 10*3/uL (0.0-0.87); Eosinophils % 7.8 % (0.00-10.9); Hematocrit 30.3 VOL% (35.7-47.0); Hemoglobin 9.6 GM/DL (12.0-16.0); Immature Granulocytes % 0.8 %; Immature Granulocytes Absolute 0.08 #; Lymphocytes # 1.4 10*3/uL (1.4-4.0); Lymphocytes % 14.1 % (21.3-54.2); Mean Corpuscular HGB Conc 31.7 GM/DL (32-36); Mean Corpuscular Hemoglobin 29 PG (27-34); Mean Corpuscular Volume 91.3 FL (87-102); Monocytes # 0.6 10*3/uL (0.11-0.8); Monocytes % 5.8 % (1.7-12.7); Neutrophils # 7.1 10*3/uL (1.4-7.4); Platelet Count 382 T/CUMM (130-400); Red Blood Count 3.32 MC/CUMM (3.8-5.5); Red Cell Distribution Width 14.1 % (9.3-17.3)
[2017-08-10] MEDS: GABAPENTIN 400 MG CAPSULE PO SCH ×2 (09:52→15:00)
[2017-08-10] MEDS: ENOXAPARIN 40 MG/0.4 ML SYRINGE SUBCUT SCH (09:52)
[2017-08-10] MEDS: PANTOPRAZOLE 40 MG TABLET PO SCH (09:52)
[2017-08-10] MEDS: clonazePAM 0.5 MG TABLET PO SCH (09:52)
[2017-08-10 11:23] VITALS: BP 106/59
== END 2017-08-10 14:20 | disposition home health service (06) | DRG 866 ==
LOC: N.ED 09:31 → N.EDINP 14:10 → N.3E 17:37
PROVIDERS: ADMIT Surgery; ATTEND Surgery

== ENCOUNTER 2019-10-07 05:42 | Inpatient (IN) ==
[2019-10-07] MEDS ORDERED: VANCOMYCIN 1,000 MG VIAL ONE (06:09)
[2019-10-07] MEDS ORDERED: ceFAZolin 1,000 MG VIAL ONE (06:09)
[2019-10-07] MEDS ORDERED: ceFAZolin 1,000 MG in SYRINGE 1 EACH IV ONE (06:30)
[2019-10-07] MEDS ORDERED: VANCOMYCIN INJ 1,000 MG in SODIUM CHLORIDE 0.9% 250 ML IV ONE (06:30)
[2019-10-07] MEDS ORDERED: LACTATED RINGERS 1,000 ML IV SCH ×2 (07:00→08:30)
[2019-10-07] MEDS ORDERED: BACITRACIN OINT 0.9 GM PACK TOP ONE (07:56)
[2019-10-07] MEDS ORDERED: MORPHINE 4 MG/1 ML VIAL IV PRN ×2 (08:10)
[2019-10-07] MEDS ORDERED: ONDANSETRON 4 MG/2 ML VIAL IV PRN ×2 (08:10→08:42)
[2019-10-07] MEDS ORDERED: MAGNESIUM HYDROXIDE SUSP 30 ML UDCUP PO PRN (08:10)
[2019-10-07] MEDS ORDERED: diphenhydrAMINE CAP 25 MG CAPSULE PO PRN (08:10)
[2019-10-07] MEDS ORDERED: propofoL 200 MG/20 ML VIAL IV ONE (08:41)
[2019-10-07] MEDS ORDERED: LIDOCAINE 2% 5 ML VIAL ONE (08:41)
[2019-10-07] MEDS ORDERED: TRANEXAMIC ACID 1,000 MG/10 ML VIAL ONE (08:42)
[2019-10-07] MEDS ORDERED: fentaNYL 100 MCG/2 ML VIAL ONE (08:42)
[2019-10-07] MEDS ORDERED: ACETAMINOPHEN 1,000 MG/100 ML VIAL IV ONE (08:42)
[2019-10-07] MEDS ORDERED: SEVOFLURANE 1 UNIT/15 MINUTE INH ONE (08:42)
[2019-10-07] MEDS ORDERED: PHENYLEPHRINE 1 MG/10 ML SYRINGE IV ONE (08:43)
[2019-10-07] MEDS: HYDROmorphone 2 MG/1 ML VIAL IV PRN ×2 (08:50→09:30)
[2019-10-07] MEDS ORDERED: NALOXONE 0.4 MG/ML VIAL ONE (10:20)
[2019-10-07] MEDS ORDERED: NALOXONE 0.4 MG/ML VIAL IV ONE (10:26)
[2019-10-07] MEDS: KETOROLAC 15 MG/1 ML VIAL IV SCH ×3 (11:31→21:49)
[2019-10-07] MEDS ORDERED: MEPERIDINE 25 MG/1 ML VIAL ONE (11:56)
[2019-10-07] MEDS ORDERED: ROPIVACAINE 0.5% 30 ML VIAL ONE (12:03)
[2019-10-07] MEDS ORDERED: DEXMEDETOMIDINE 200 MCG/2 ML VIAL ONE (12:04)
[2019-10-07] MEDS ORDERED: FUROSEMIDE 20 MG/2 ML VIAL ONE (13:43)
[2019-10-07] MEDS ORDERED: ALBUTEROL/IPRATROPIUM 3 ML NEB RESP TX ONE ×2 (13:43→13:48)
[2019-10-07] MEDS ORDERED: FUROSEMIDE 20 MG/2 ML VIAL IV ONE (13:47)
[2019-10-07] MEDS: GABAPENTIN 400 MG CAPSULE PO SCH ×3 (14:20→21:53)
[2019-10-07] MEDS: ceFAZolin 1,000 MG in SYRINGE 1 EACH IV SCH ×2 (14:21→21:53)
[2019-10-07 16:34] LABS: Basophils % 0.2 % (0.0-0.8); Hematocrit 38.2 VOL% (35.7-47.0); Hemoglobin 11.6 GM/DL (12.0-16.0); Immature Granulocytes % 0.9 %; Immature Granulocytes Absolute 0.14 #; Lymphocytes # 0.9 10*3/uL (1.4-4.0); Lymphocytes % 5.8 % (21.3-54.2); Mean Corpuscular HGB Conc 30.4 GM/DL (32-36); Mean Corpuscular Volume 99.2 FL (87-102); Mean Platelet Volume 10.8 FL (9.6-12.0); Monocytes % 2.9 % (1.7-12.7); Neutrophils % 90.2 % (38.7-73.9); Platelet Count 189 T/CUMM (130-400); Red Blood Count 3.85 MC/CUMM (3.8-5.5); Red Cell Distribution Width 14.3 % (9.3-17.3); White Blood Count 15.7 T/CUMM (4-12)
[2019-10-07 16:52] LABS: Calcium 8.2 MG/DL (8.5-10.1); Osmolality,Calculated 286.8 MOS/KG (273-304)
[2019-10-07] MEDS ORDERED: CALCIUM GLUCONATE 1,000 MG in SODIUM CHLORIDE 0.9% 100 ML IV ONE ×2 (17:13→21:00)
[2019-10-07] MEDS ORDERED: SODIUM CHLORIDE 0.9% 500 ML IV ONE (17:13)
[2019-10-07] MEDS ORDERED: SODIUM POLYSTYRENE SULFATE 15 GM/60 ML BOTTLE PO STA (17:13)
[2019-10-07] MEDS: clonazePAM 0.5 MG TABLET PO SCH (21:52)
[2019-10-07] MEDS: CITALOPRAM 40 MG TABLET PO SCH (21:52)
[2019-10-07] MEDS: DOCUSATE SODIUM 100 MG CAPSULE PO SCH (21:53)
[2019-10-07] MEDS: SIMVASTATIN 20 MG TABLET PO SCH (21:53)
[2019-10-07] MEDS: LISINOPRIL/HCTZ 20-12.5 MG TABLET PO SCH (21:54)
[2019-10-08] MEDS: KETOROLAC 15 MG/1 ML VIAL IV SCH (02:04)
[2019-10-08] MEDS: ACETAMINOPHEN 325 MG TABLET PO PRN ×2 (05:10→15:50)
[2019-10-08] MEDS: LEVOTHYROXINE 50 MCG TABLET PO SCH (06:35)
[2019-10-08] MEDS: FONDAPARINUX 2.5 MG/0.5 ML SYRINGE SUBCUT SCH (06:36)
[2019-10-08 07:01] LABS: Basophils % 0.2 % (0.0-0.8); Eosinophils % 0.1 % (0.00-10.9); Hematocrit 30.5 VOL% (35.7-47.0); Immature Granulocytes % 0.7 %; Immature Granulocytes Absolute 0.09 #; Lymphocytes # 1.4 10*3/uL (1.4-4.0); Lymphocytes % 11.1 % (21.3-54.2); Mean Corpuscular HGB Conc 31.1 GM/DL (32-36); Mean Corpuscular Volume 95.6 FL (87-102); Mean Platelet Volume 10.9 FL (9.6-12.0); Monocytes % 6.4 % (1.7-12.7); Neutrophils % 81.5 % (38.7-73.9); Red Blood Count 3.19 MC/CUMM (3.8-5.5); Red Cell Distribution Width 14.2 % (9.3-17.3); White Blood Count 12.6 T/CUMM (4-12)
[2019-10-08 07:03] LABS: Hemoglobin 9.5 GM/DL (12.0-16.0); Platelet Count 147 T/CUMM (130-400)
[2019-10-08 07:05] LABS: Calcium 8.3 MG/DL (8.5-10.1); Osmolality,Calculated 280.5 MOS/KG (273-304)
[2019-10-08] MEDS: DOCUSATE SODIUM 100 MG CAPSULE PO SCH ×2 (09:52→21:43)
[2019-10-08] MEDS: clonazePAM 0.5 MG TABLET PO SCH ×2 (09:52→21:43)
[2019-10-08] MEDS: GABAPENTIN 400 MG CAPSULE PO SCH ×3 (09:53→21:43)
[2019-10-08] MEDS: PANTOPRAZOLE 40 MG TABLET PO SCH (09:54)
[2019-10-08] MEDS: SIMVASTATIN 20 MG TABLET PO SCH (21:43)
[2019-10-08] MEDS: LISINOPRIL/HCTZ 20-12.5 MG TABLET PO SCH (21:43)
[2019-10-08] MEDS: CITALOPRAM 40 MG TABLET PO SCH (21:43)
[2019-10-09] MEDS: FONDAPARINUX 2.5 MG/0.5 ML SYRINGE SUBCUT SCH (05:55)
[2019-10-09] MEDS: LEVOTHYROXINE 50 MCG TABLET PO SCH (05:55)
[2019-10-09 06:24] LABS: Basophils % 0.2 % (0.0-0.8); Eosinophils # 0.3 10*3/uL (0.0-0.87); Eosinophils % 2.8 % (0.00-10.9); Hematocrit 32.1 VOL% (35.7-47.0); Hemoglobin 10.1 GM/DL (12.0-16.0); Immature Granulocytes % 0.6 %; Immature Granulocytes Absolute 0.06 #; Lymphocytes # 1.5 10*3/uL (1.4-4.0); Lymphocytes % 14.7 % (21.3-54.2); Mean Corpuscular HGB Conc 31.5 GM/DL (32-36); Mean Corpuscular Volume 96.1 FL (87-102); Mean Platelet Volume 11.5 FL (9.6-12.0); Monocytes % 7.3 % (1.7-12.7); Neutrophils % 74.4 % (38.7-73.9); Platelet Count 148 T/CUMM (130-400); Red Blood Count 3.34 MC/CUMM (3.8-5.5); Red Cell Distribution Width 14.2 % (9.3-17.3); White Blood Count 10.1 T/CUMM (4-12)
[2019-10-09] MEDS: GABAPENTIN 400 MG CAPSULE PO SCH ×3 (09:31→21:17)
[2019-10-09] MEDS: PANTOPRAZOLE 40 MG TABLET PO SCH (09:31)
[2019-10-09] MEDS: clonazePAM 0.5 MG TABLET PO SCH ×2 (09:31→21:18)
[2019-10-09] MEDS: DOCUSATE SODIUM 100 MG CAPSULE PO SCH ×2 (09:31→21:18)
[2019-10-09] MEDS: CITALOPRAM 40 MG TABLET PO SCH (21:17)
[2019-10-09] MEDS: LISINOPRIL/HCTZ 20-12.5 MG TABLET PO SCH (21:18)
[2019-10-09] MEDS: SIMVASTATIN 20 MG TABLET PO SCH (21:18)
[2019-10-10 06:02] LABS: Basophils % 0.3 % (0.0-0.8); Eosinophils # 0.3 10*3/uL (0.0-0.87); Eosinophils % 2.9 % (0.00-10.9); Hematocrit 31.8 VOL% (35.7-47.0); Immature Granulocytes % 0.6 %; Immature Granulocytes Absolute 0.07 #; Lymphocytes # 1.3 10*3/uL (1.4-4.0); Lymphocytes % 11.5 % (21.3-54.2); Mean Corpuscular HGB Conc 31.4 GM/DL (32-36); Mean Corpuscular Volume 94.6 FL (87-102); Mean Platelet Volume 11.6 FL (9.6-12.0); Monocytes % 8.4 % (1.7-12.7); Neutrophils % 76.3 % (38.7-73.9); Platelet Count 165 T/CUMM (130-400); Red Blood Count 3.36 MC/CUMM (3.8-5.5); Red Cell Distribution Width 14.1 % (9.3-17.3); White Blood Count 11.1 T/CUMM (4-12)
[2019-10-10] MEDS: LEVOTHYROXINE 50 MCG TABLET PO SCH (06:20)
[2019-10-10] MEDS: FONDAPARINUX 2.5 MG/0.5 ML SYRINGE SUBCUT SCH (06:21)
[2019-10-10 08:10] VITALS: BP 122/70
[2019-10-10] MEDS: clonazePAM 0.5 MG TABLET PO SCH (09:40)
[2019-10-10] MEDS: GABAPENTIN 400 MG CAPSULE PO SCH (09:40)
[2019-10-10] MEDS: DOCUSATE SODIUM 100 MG CAPSULE PO SCH (09:40)
[2019-10-10] MEDS: PANTOPRAZOLE 40 MG TABLET PO SCH (09:40)
== END 2019-10-10 12:35 | disposition swing bed (61) | DRG 470 ==
LOC: N.OR 05:42 → N.SDSINP 05:43 → N.3E 14:40
PROVIDERS: ADMIT Orthopaedic Surgery; ATTEND Orthopaedic Surgery

== ENCOUNTER 2022-03-01 23:59 | Observation (INO) ==
[2022-03-02] MEDS ORDERED: SODIUM CHLORIDE 0.9% 500 ML IV STA (00:27)
[2022-03-02] MEDS ORDERED: ONDANSETRON 4 MG/2 ML VIAL IV STA (00:27)
[2022-03-02 01:42] LABS: Basophils % 0.5 % (0.0-0.8); Eosinophils # 0.1 10*3/uL (0.0-0.87); Hematocrit 41.5 VOL% (35.7-47.0); Hemoglobin 13.2 GM/DL (12.0-16.0); Immature Granulocytes % 0.3 %; Immature Granulocytes Absolute 0.02 #; Lymphocytes # 0.7 10*3/uL (1.4-4.0); Lymphocytes % 11.6 % (21.3-54.2); Mean Corpuscular HGB Conc 31.8 GM/DL (32-36); Mean Corpuscular Volume 94.5 FL (87-102); Mean Platelet Volume 11.2 FL (9.6-12.0); Monocytes # 0.5 10*3/uL (0.11-0.8); Monocytes % 8.9 % (1.7-12.7); Neutrophils % 77.7 % (38.7-73.9); Platelet Count 154 T/CUMM (130-400); Red Blood Count 4.39 MC/CUMM (3.8-5.5); Red Cell Distribution Width 13.3 % (9.3-17.3); White Blood Count 6.1 T/CUMM (4-12)
[2022-03-02 01:50] LABS: INR 0.9; PT Patient Result 10.4 SECS (10.1-12.1); Partial Thromboplastin Time 29.9 SECS (23.7-32.9)
[2022-03-02 01:56] LABS: Albumin 3.9 G/DL (3.4-5.0); Bilirubin,Total 0.4 MG/DL (0.20-1.00); Calcium 9.1 MG/DL (8.5-10.1); Osmolality,Calculated 278.4 MOS/KG (273-304); Potassium 3.8 MMOL/L (3.5-5.1); Total Protein 6.2 G/DL (6.4-8.2)
[2022-03-02] MEDS ORDERED: ONDANSETRON 4 MG/2 ML VIAL IV PRN (02:42)
[2022-03-02] MEDS ORDERED: hydrALAZINE 20 MG/1 ML VIAL IV PRN (02:42)
[2022-03-02] MEDS ORDERED: MORPHINE 2 MG/1 ML SYRINGE IV PRN (02:42)
[2022-03-02 02:59] LABS: Bilirubin,Urine Negative (Negative); Blood, Urine Negative (Negative); Glucose,Urine (UA) Negative (Negative); Ketones,Urine 15 mg/dL (Negative); Mucus,Urine Occasional /LPF (Occasional); Nitrite,Urine Negative (Negative); Protein,Urine Negative (Negative); RBC,Urine 1 /HPF (0-4); Squamous Epithelial Cell,Urine Occasional /HPF (0-10); Urine Appearance Clear (Clear); Urine Color Yellow (Yellow); Urine Urobilinogen 0.2 eU/dL (<2.0)
[2022-03-02] MEDS: LACTATED RINGERS 1,000 ML IV SCH ×2 (03:20→16:54)
[2022-03-02] MEDS: LEVOTHYROXINE 25 MCG TABLET PO SCH (06:06)
[2022-03-02] MEDS: ALBUTEROL/IPRATROPIUM 3 ML NEB RESP TX SCH ×3 (07:35→20:44)
[2022-03-02] MEDS: clonazePAM 0.5 MG TABLET PO SCH ×2 (08:38→22:29)
[2022-03-02] MEDS: PANTOPRAZOLE 40 MG TABLET PO SCH (08:38)
[2022-03-02] MEDS: ENOXAPARIN 40 MG/0.4 ML SYRINGE SUBCUT SCH (22:28)
[2022-03-02] MEDS: CITALOPRAM 40 MG TABLET PO SCH (22:29)
[2022-03-02] MEDS: SIMVASTATIN 20 MG TABLET PO SCH (22:29)
[2022-03-03] MEDS: ALBUTEROL/IPRATROPIUM 3 ML NEB RESP TX SCH ×2 (01:14→07:32)
[2022-03-03 05:56] LABS: Basophils % 0.3 % (0.0-0.8); Hematocrit 40.8 VOL% (35.7-47.0); Hemoglobin 12.5 GM/DL (12.0-16.0); Immature Granulocytes % 0.3 %; Immature Granulocytes Absolute 0.02 #; Lymphocytes # 0.9 10*3/uL (1.4-4.0); Mean Corpuscular HGB Conc 30.6 GM/DL (32-36); Mean Platelet Volume 11.5 FL (9.6-12.0); Monocytes # 0.7 10*3/uL (0.11-0.8); Monocytes % 9.3 % (1.7-12.7); Neutrophils % 79.1 % (38.7-73.9); Platelet Count 150 T/CUMM (130-400); Red Blood Count 4.25 MC/CUMM (3.8-5.5); Red Cell Distribution Width 13.6 % (9.3-17.3); White Blood Count 7.9 T/CUMM (4-12)
[2022-03-03] MEDS: LEVOTHYROXINE 25 MCG TABLET PO SCH (06:02)
[2022-03-03 06:08] LABS: Calcium 8.9 MG/DL (8.5-10.1); Osmolality,Calculated 280.3 MOS/KG (273-304); Potassium 3.2 MMOL/L (3.5-5.1)
[2022-03-03] MEDS: LACTATED RINGERS 1,000 ML IV SCH (06:08)
[2022-03-03] MEDS ORDERED: POTASSIUM CHLORIDE 20 MEQ TABLET PO ONE ×2 (09:00→11:00)
[2022-03-03] MEDS: guaiFENesin/DM ER 600-30 MG TABLET PO SCH ×2 (10:35→22:11)
[2022-03-03] MEDS: predniSONE 20 MG TABLET PO SCH ×2 (10:36→22:05)
[2022-03-03] MEDS: clonazePAM 0.5 MG TABLET PO SCH ×2 (10:36→22:04)
[2022-03-03] MEDS: DOXYCYCLINE HYCLATE 100 MG CAPSULE PO SCH ×2 (10:38→22:04)
[2022-03-03] MEDS: PANTOPRAZOLE 40 MG TABLET PO SCH (10:38)
[2022-03-03] MEDS: CETIRIZINE 10 MG TABLET PO SCH (10:38)
[2022-03-03] MEDS: cefTRIAXone 1,000 MG in SODIUM CHLORIDE 0.9% 100 ML IV SCH (12:43)
[2022-03-03] MEDS: LEVALBUTEROL 1.25 MG/3 ML NEB RESP TX SCH ×2 (13:39→19:51)
[2022-03-03] MEDS: ENOXAPARIN 40 MG/0.4 ML SYRINGE SUBCUT SCH (22:01)
[2022-03-03] MEDS: CITALOPRAM 40 MG TABLET PO SCH (22:04)
[2022-03-03] MEDS: SIMVASTATIN 20 MG TABLET PO SCH (22:04)
[2022-03-04] MEDS: LEVALBUTEROL 1.25 MG/3 ML NEB RESP TX SCH ×4 (00:09→18:56)
[2022-03-04] MEDS: LEVOTHYROXINE 25 MCG TABLET PO SCH (06:41)
[2022-03-04] MEDS: guaiFENesin/DM ER 600-30 MG TABLET PO SCH ×2 (09:43→21:04)
[2022-03-04] MEDS: PANTOPRAZOLE 40 MG TABLET PO SCH (09:43)
[2022-03-04] MEDS: predniSONE 20 MG TABLET PO SCH ×2 (09:43→21:04)
[2022-03-04] MEDS: CETIRIZINE 10 MG TABLET PO SCH (09:43)
[2022-03-04] MEDS: DOXYCYCLINE HYCLATE 100 MG CAPSULE PO SCH ×2 (09:43→21:03)
[2022-03-04] MEDS: clonazePAM 0.5 MG TABLET PO SCH ×2 (09:43→21:04)
[2022-03-04] MEDS: cefTRIAXone 1,000 MG in SODIUM CHLORIDE 0.9% 100 ML IV SCH (09:46)
[2022-03-04] MEDS: ENOXAPARIN 40 MG/0.4 ML SYRINGE SUBCUT SCH (21:03)
[2022-03-04] MEDS: SIMVASTATIN 20 MG TABLET PO SCH (21:04)
[2022-03-04] MEDS: CITALOPRAM 40 MG TABLET PO SCH (21:04)
[2022-03-05] MEDS: LEVALBUTEROL 1.25 MG/3 ML NEB RESP TX SCH ×4 (00:48→19:06)
[2022-03-05] MEDS: ACETAMINOPHEN 325 MG TABLET PO PRN (04:42)
[2022-03-05 04:59] LABS: Basophils % 0.1 % (0.0-0.8); Hematocrit 40.2 VOL% (35.7-47.0); Hemoglobin 12.5 GM/DL (12.0-16.0); Immature Granulocytes % 0.7 %; Immature Granulocytes Absolute 0.06 #; Lymphocytes # 0.7 10*3/uL (1.4-4.0); Lymphocytes % 7.5 % (21.3-54.2); Mean Corpuscular HGB Conc 31.1 GM/DL (32-36); Mean Corpuscular Volume 95.7 FL (87-102); Mean Platelet Volume 11.2 FL (9.6-12.0); Monocytes # 0.3 10*3/uL (0.11-0.8); Monocytes % 2.7 % (1.7-12.7); Platelet Count 171 T/CUMM (130-400); Red Cell Distribution Width 13.6 % (9.3-17.3); White Blood Count 9.2 T/CUMM (4-12)
[2022-03-05 05:09] LABS: Calcium 9.3 MG/DL (8.5-10.1); Osmolality,Calculated 283.4 MOS/KG (273-304); Potassium 4.5 MMOL/L (3.5-5.1)
[2022-03-05] MEDS: LEVOTHYROXINE 25 MCG TABLET PO SCH (06:12)
[2022-03-05] MEDS: CETIRIZINE 10 MG TABLET PO SCH (11:58)
[2022-03-05] MEDS: clonazePAM 0.5 MG TABLET PO SCH ×2 (11:58→20:46)
[2022-03-05] MEDS: DOXYCYCLINE HYCLATE 100 MG CAPSULE PO SCH ×2 (11:58→20:46)
[2022-03-05] MEDS: PANTOPRAZOLE 40 MG TABLET PO SCH (11:59)
[2022-03-05] MEDS: guaiFENesin/DM ER 600-30 MG TABLET PO SCH ×2 (11:59→20:47)
[2022-03-05] MEDS: predniSONE 20 MG TABLET PO SCH ×2 (12:00→20:47)
[2022-03-05] MEDS: cefTRIAXone 1,000 MG in SODIUM CHLORIDE 0.9% 100 ML IV SCH (12:03)
[2022-03-05] MEDS: CITALOPRAM 40 MG TABLET PO SCH (20:46)
[2022-03-05] MEDS: SIMVASTATIN 20 MG TABLET PO SCH (20:46)
[2022-03-05] MEDS: ENOXAPARIN 40 MG/0.4 ML SYRINGE SUBCUT SCH (20:46)
[2022-03-06] MEDS: LEVALBUTEROL 1.25 MG/3 ML NEB RESP TX SCH ×4 (00:02→19:50)
[2022-03-06] MEDS: ACETAMINOPHEN 325 MG TABLET PO PRN (00:06)
[2022-03-06 06:11] LABS: Basophils % 0.1 % (0.0-0.8); Hematocrit 40.3 VOL% (35.7-47.0); Hemoglobin 12.4 GM/DL (12.0-16.0); Immature Granulocytes Absolute 0.08 #; Lymphocytes # 0.5 10*3/uL (1.4-4.0); Lymphocytes % 5.7 % (21.3-54.2); Mean Corpuscular HGB Conc 30.8 GM/DL (32-36); Mean Corpuscular Volume 94.8 FL (87-102); Mean Platelet Volume 11.1 FL (9.6-12.0); Monocytes # 0.4 10*3/uL (0.11-0.8); Neutrophils % 88.2 % (38.7-73.9); Platelet Count 180 T/CUMM (130-400); Red Blood Count 4.25 MC/CUMM (3.8-5.5); Red Cell Distribution Width 13.6 % (9.3-17.3); White Blood Count 8.2 T/CUMM (4-12)
[2022-03-06] MEDS: LEVOTHYROXINE 25 MCG TABLET PO SCH (06:28)
[2022-03-06 06:30] LABS: Calcium 8.9 MG/DL (8.5-10.1); Osmolality,Calculated 285.3 MOS/KG (273-304); Potassium 4.4 MMOL/L (3.5-5.1)
[2022-03-06] MEDS: CETIRIZINE 10 MG TABLET PO SCH (09:05)
[2022-03-06] MEDS: clonazePAM 0.5 MG TABLET PO SCH ×2 (09:05→21:49)
[2022-03-06] MEDS: PANTOPRAZOLE 40 MG TABLET PO SCH (09:05)
[2022-03-06] MEDS: predniSONE 20 MG TABLET PO SCH ×2 (09:05→21:49)
[2022-03-06] MEDS: guaiFENesin/DM ER 600-30 MG TABLET PO SCH ×2 (09:05→21:49)
[2022-03-06] MEDS: DOXYCYCLINE HYCLATE 100 MG CAPSULE PO SCH ×2 (09:05→21:49)
[2022-03-06] MEDS: cefTRIAXone 1,000 MG in SODIUM CHLORIDE 0.9% 100 ML IV SCH (09:06)
[2022-03-06] MEDS: DOCUSATE SODIUM 100 MG CAPSULE PO SCH ×2 (15:45→21:49)
[2022-03-06] MEDS: POLYETHYLENE GLYCOL POWDER 17 GM PACK PO SCH (15:45)
[2022-03-06] MEDS: SIMVASTATIN 20 MG TABLET PO SCH (21:49)
[2022-03-06] MEDS: CITALOPRAM 40 MG TABLET PO SCH (21:49)
[2022-03-06] MEDS: ENOXAPARIN 40 MG/0.4 ML SYRINGE SUBCUT SCH (21:49)
[2022-03-07] MEDS: LEVALBUTEROL 1.25 MG/3 ML NEB RESP TX SCH ×4 (00:50→18:05)
[2022-03-07] MEDS: LEVOTHYROXINE 25 MCG TABLET PO SCH (06:30)
[2022-03-07] MEDS: cefTRIAXone 1,000 MG in SODIUM CHLORIDE 0.9% 100 ML IV SCH (08:53)
[2022-03-07] MEDS: DOXYCYCLINE HYCLATE 100 MG CAPSULE PO SCH ×2 (08:53→21:15)
[2022-03-07] MEDS: DOCUSATE SODIUM 100 MG CAPSULE PO SCH ×2 (08:53→21:15)
[2022-03-07] MEDS: predniSONE 20 MG TABLET PO SCH ×2 (08:53→21:15)
[2022-03-07] MEDS: clonazePAM 0.5 MG TABLET PO SCH ×2 (08:53→21:15)
[2022-03-07] MEDS: POLYETHYLENE GLYCOL POWDER 17 GM PACK PO SCH (08:53)
[2022-03-07] MEDS: CETIRIZINE 10 MG TABLET PO SCH (08:53)
[2022-03-07] MEDS: PANTOPRAZOLE 40 MG TABLET PO SCH (08:54)
[2022-03-07] MEDS: guaiFENesin/DM ER 600-30 MG TABLET PO SCH ×2 (08:54→21:15)
[2022-03-07] MEDS ORDERED: MAGNESIUM HYDROXIDE SUSP 30 ML UDCUP PO ONE (09:35)
[2022-03-07] MEDS ORDERED: PHENOL 1.4% THROAT SPRAY 177 ML BOTTLE PO PRN (11:09)
[2022-03-07] MEDS: ENOXAPARIN 40 MG/0.4 ML SYRINGE SUBCUT SCH (21:15)
[2022-03-07] MEDS: CITALOPRAM 40 MG TABLET PO SCH (21:15)
[2022-03-07] MEDS: LUBIPROSTONE 8 MCG CAPSULE PO SCH (21:15)
[2022-03-07] MEDS: SIMVASTATIN 20 MG TABLET PO SCH (21:15)
[2022-03-08] MEDS: LEVALBUTEROL 1.25 MG/3 ML NEB RESP TX SCH ×2 (00:02→07:06)
[2022-03-08 04:59] LABS: Basophils % 0.4 % (0.0-0.8); Hematocrit 39.6 VOL% (35.7-47.0); Hemoglobin 12.6 GM/DL (12.0-16.0); Immature Granulocytes % 2.2 %; Immature Granulocytes Absolute 0.17 #; Lymphocytes # 0.8 10*3/uL (1.4-4.0); Lymphocytes % 10.1 % (21.3-54.2); Mean Corpuscular HGB Conc 31.8 GM/DL (32-36); Mean Platelet Volume 11.3 FL (9.6-12.0); Monocytes # 0.6 10*3/uL (0.11-0.8); Monocytes % 7.1 % (1.7-12.7); Neutrophils % 80.2 % (38.7-73.9); Platelet Count 185 T/CUMM (130-400); Red Blood Count 4.26 MC/CUMM (3.8-5.5); Red Cell Distribution Width 13.7 % (9.3-17.3); White Blood Count 7.9 T/CUMM (4-12)
[2022-03-08 05:17] LABS: Calcium 8.9 MG/DL (8.5-10.1); Potassium 4.3 MMOL/L (3.5-5.1)
[2022-03-08] MEDS: LEVOTHYROXINE 25 MCG TABLET PO SCH (05:45)
[2022-03-08] MEDS ORDERED: LINACLOTIDE 145 MCG CAPSULE PO SCH (07:30)
[2022-03-08 08:17] VITALS: BP 132/63
[2022-03-08] MEDS: POLYETHYLENE GLYCOL POWDER 17 GM PACK PO SCH (08:38)
[2022-03-08] MEDS: clonazePAM 0.5 MG TABLET PO SCH (08:39)
[2022-03-08] MEDS: CETIRIZINE 10 MG TABLET PO SCH (08:39)
[2022-03-08] MEDS: DOCUSATE SODIUM 100 MG CAPSULE PO SCH (08:39)
[2022-03-08] MEDS: PANTOPRAZOLE 40 MG TABLET PO SCH (08:39)
[2022-03-08] MEDS: DOXYCYCLINE HYCLATE 100 MG CAPSULE PO SCH (08:39)
[2022-03-08] MEDS: guaiFENesin/DM ER 600-30 MG TABLET PO SCH (08:39)
[2022-03-08] MEDS: predniSONE 20 MG TABLET PO SCH (08:39)
[2022-03-08] MEDS: cefTRIAXone 1,000 MG in SODIUM CHLORIDE 0.9% 100 ML IV SCH (08:40)
[2022-03-08] MEDS ORDERED: CHOLECALCIFEROL 1,000 UNIT TABLET PO SCH (09:00)
[2022-03-08] MEDS ORDERED: ALUM/MAG/SIMETH/LIDO VISC 1:1 30 ML BOTTLE PO ONE (09:16)
[2022-03-08] MEDS: LUBIPROSTONE 8 MCG CAPSULE PO SCH (10:47)
[2022-03-09] MEDS ORDERED: CEFUROXIME 250 MG TABLET PO SCH (09:00)
== END 2022-03-08 13:36 | disposition swing bed (61) ==
LOC: N.2W 23:59 → N.ED 23:59 → N.2W 03-02 04:00 → N.2E 03-02 16:22 → SUATTDRO 03-03 10:18
PROVIDERS: ADMIT Family Medicine; ATTEND Hospitalist